=== PATIENT | female | born 1935 | race Caucasian/White ===

== ENCOUNTER 2017-03-23 13:00 | Inpatient (IN) | payer MEDICARE, OTHER ==
[~2017-03-23] VITALS: Ht 170.2 cm; Wt 91.2 kg
--- NOTE | 2017-03-23 13:51 | NUR ---
PATIENT IS AWAKE AND ALERT. SHE AMBULATED TO BATHROOM AND WAS ABLE TO PROVIDE A URINE SAMPLE.
[2017-03-23 13:56] LABS: BASOPHILS % (AUTO) 0.5 % (0.0-2.0); EOSINOPHILS # (AUTO) 0.1 K/uL (0.0-0.7); EOSINOPHILS % (AUTO) 1.1 % (0.0-7.0); HEMATOCRIT 36.7 % (37-47); HEMOGLOBIN 12.1 G/DL (12.0-16.0); LYMPHOCYTES # (AUTO) 2.6 K/UL (0.8-4.8); LYMPHOCYTES % (AUTO) 36.4 % (20.5-51.5); MEAN CORPUSCULAR HEMOGLOBIN 29.1 UUG (27.0-31.0); MEAN CORPUSCULAR HGB CONC 33 g/dL (32.0-37.0); MONOCYTES # (AUTO) 0.9 K/UL (0.1-1.30); MONOCYTES % (AUTO) 12.1 % (0.0-11.0); NEUTROPHILS # (AUTO) 3.5 K/UL (1.8-8.9); NEUTROPHILS % (AUTO) 49.9 % (38.5-71.5); PLATELET COUNT (AUTO) 285 K/UL (150-450); RED BLOOD CELL COUNT(AUTO) 4.17 MIL/UL (4.2-5.4); WHITE BLOOD COUNT (AUTO) 7.1 K/UL (4.0-11.2)
[2017-03-23] MEDS ORDERED: RIVA10TA PO (14:02)
[2017-03-23] MEDS ORDERED: HYDR25TA4 PO (14:02)
[2017-03-23] MEDS ORDERED: TRAZ-147 PO (14:02)
[2017-03-23] MEDS ORDERED: METF850T2 PO (14:02)
[2017-03-23] MEDS ORDERED: LIOT5TAB7 PO (14:02)
[2017-03-23] MEDS ORDERED: LISI40TA4 PO (14:02)
[2017-03-23] MEDS ORDERED: QUET200T PO (14:02)
[2017-03-23] MEDS ORDERED: DIVA500T2 PO (14:02)
[2017-03-23] MEDS ORDERED: QUET50TA PO (14:02)
[2017-03-23] MEDS ORDERED: FENO134C PO (14:02)
[2017-03-23] MEDS ORDERED: CHOL500062 PO (14:02)
[2017-03-23] MEDS ORDERED: DOCU-141 PO (14:02)
[2017-03-23] MEDS ORDERED: LINA5TAB PO (14:02)
[2017-03-23] MEDS ORDERED: MELA3TAB PO (14:02)
[2017-03-23] MEDS ORDERED: DIGO125T PO (14:02)
[2017-03-23] MEDS ORDERED: LEVO88TA5 PO (14:02)
[2017-03-23] MEDS ORDERED: CITA10TA17 PO (14:02)
[2017-03-23 14:06] LABS: *BILIRUBIN,URIN NEGATIVE (NEGATIVE); *BLOOD, URINE NEGATIVE (NEGATIVE); *COLOR,URINE YELLOW (YELLOW); *KETONES,URINE NEGATIVE (NEGATIVE); *PROTEIN,URINE NEGATIVE (NEGATIVE); *UROBILINOGEN,URINE 0.2 E.U./dl (NORMAL); CARBON DIOXIDE 31 mmol/L (21-32); CHLORIDE 100 mmol/L (98-107); CREATININE 1.2 mg/dL (0.6-1.3); GLUCOSE 126 mg/dL (74-106); LEUKOCYTE ESTERASE ,URINE NEGATIVE (NEGATIVE); NITRITE, URINE NEGATIVE (NEGATIVE); PH,URINE 7.5 (5.0-8.0); POTASSIUM 3.8 mmol/L (3.5-5.1); UGLUCOSE NEGATIVE (NEGATIVE); UREA NITROGEN, BLOOD 18 mg/dL (7-18)
[2017-03-23 14:07] LABS: *CLARITY,URINE SLIGHTLY HAZY (CLEAR)
[2017-03-23 14:12] LABS: ACETAMINOPHEN < 2.0 ug/mL (10-30); ALANINE AMINOTRANSFERASE 31 U/L (14-59); ALKALINE PHOSPHATASE 30 U/L (50-136); ASPARTATE AMINOTRANSFERASE 21 U/L (15-37); BILIRUBIN,DIRECT 0.1 mg/dL (0.0-0.2); BILIRUBIN,TOTAL 0.2 mg/dL (0.2-1.0); TOTAL PROTEIN, SERUM 7.1 g/dL (6.4-8.2)
[2017-03-23 14:13] LABS: ETHANOL < 3 MG/DL (0-0)
[2017-03-23 14:14] LABS: *AMPHETAMINE, URINE NEGATIVE (NEGATIVE); *BARBITURATE, URINE NEGATIVE (NEGATIVE); *CANNABINOID, URINE NEGATIVE (NEGATIVE); *COCCAINE, URINE NEGATIVE (NEGATIVE); *OPIATE, URINE NEGATIVE (NEGATIVE); *PHENCYCLIDINE SCREEN,URINE NEGATIVE (NEGATIVE)
[2017-03-23 14:50] LABS: BACTERIA,URINE NONE SEEN /HPF (NONE SEEN); RBC,URINE 0-3 /HPF (0-3); SQUAMOUS EPITHELIAL CELL,UR FEW /HPF (NONE SEEN); WBC,URINE 0-3 /HPF (0-3)
[2017-03-23] MEDS ORDERED: OLANZAPINE 10 MG VIAL IM ONE ×2 (14:53→15:09)
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
--- NOTE | 2017-03-23 16:02 | NUR ---
PATIENT STATES SHE IS HUNGRY. I BROUGHT HER A FOOD TRAY. SHE IS SITTING UP EATING.
--- NOTE | 2017-03-23 16:03 | NUR ---
SHARMIN ROSS ASSISTANT SPEECH LANGUAGE PATHOLOGIST CALLED FRO PSYCH EVAL.
--- NOTE | 2017-03-23 17:58 | NUR ---
AWAITING FOR SHARMIN SILVEIRA TO ARRIVE.
--- NOTE | 2017-03-23 18:34 | NUR ---
SHARMIN ROSS HERE TO EVALUATE PATIENT
--- NOTE | 2017-03-23 19:54 | NUR ---
GIVEN REPORT TO TONY AWARE OF PT'S CURRENT CONDITION. WILL CONTINUE FURTHER PLAN OF CARE.
[2017-03-23 20:00] VITALS: BP 131/95
[2017-03-23] MEDS ORDERED: MAGNESIUM HYDROXIDE 30 ML LIQUID UDC PO PRN (20:45)
[2017-03-23] MEDS ORDERED: MAG HYDROX/AL HYDROX/SIMETH 30 ML LIQUID UDC PO PRN (20:45)
[2017-03-23 20:47] VITALS: BP 131/95
--- NOTE | 2017-03-23 21:35 | NUR ---
received to care, from the emergency room, a resident of [facility], where she was reportedly exhibiting unpredictable and aggressive behavior, striking out at others, paranoid, delusional, not oriented to time and place. upon arrival on the unit, she was pleasant but confused. taerful at times. cooperative with admission interview, and currently eating a snack. no distress noted.
[2017-03-23] MEDS: ZOLPIDEM 5 MG TABLET PO PRN (23:57)
--- NOTE | 2017-03-23 23:57 | NUR ---
PRN ambien, given for insomnia.
--- NOTE | 2017-03-24 06:00 | NUR ---
slept 2.5 hours, total. assisted with am care, and shower. no distress noted.
[2017-03-24 07:30] VITALS: BP 130/90
[2017-03-24] MEDS: HYDROCHLOROTHIAZIDE 25 MG TABLET PO SCH (08:20)
[2017-03-24] MEDS: LISINOPRIL 20 MG TABLET PO SCH (08:21)
[2017-03-24] MEDS: METFORMIN HCL 850 MG TABLET PO SCH ×2 (08:21→18:03)
[2017-03-24] MEDS: DOCUSATE SODIUM 100 MG CAPSULE PO SCH (08:21)
[2017-03-24] MEDS: DIGOXIN 125 MCG TABLET PO SCH (08:21)
[2017-03-24] MEDS: LIOTHYRONINE SODIUM 5 MCG TABLET PO SCH (08:26)
[2017-03-24] MEDS: LINAGLIPTIN 5 MG TABLET PO SCH (08:26)
[2017-03-24] MEDS ORDERED: FENOFIBRATE MICRONIZED PO SCH (09:00)
[2017-03-24] MEDS: FENOFIBRATE NANOCRYSTALLIZED 145 MG TABLET PO SCH (09:04)
[2017-03-24] MEDS: LEVOTHYROXINE SODIUM 88 MCG TABLET PO SCH (09:07)
[2017-03-24] MEDS: LORAZEPAM 0.5 MG TABLET PO PRN (11:00)
[2017-03-24] MEDS ORDERED: LORAZEPAM 2 MG/1 ML VIAL IM ONE (13:45)
[2017-03-24] MEDS ORDERED: OLANZAPINE 10 MG VIAL IM ONE ×2 (13:45)
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
[2017-03-24 16:00] VITALS: BP 120/83
[2017-03-24] MEDS: DIVALPROEX 250 MG TABLET.DR PO SCH (17:52)
[2017-03-24] MEDS: QUETIAPINE FUMARATE 25 MG TABLET PO SCH ×2 (17:52→21:39)
[2017-03-24] MEDS: RIVAROXABAN 15 MG TABLET PO SCH (17:55)
[2017-03-24] MEDS ORDERED: RIVAROXABAN 10 MG TABLET PO SCH (18:00)
[2017-03-24] MEDS: ACETAMINOPHEN 325 MG TABLET PO PRN (19:51)
[2017-03-24 20:06] VITALS: BP 131/83
--- NOTE | 2017-03-24 22:00 | NUR ---
received to care, at change of shift, up in sarah chair, banging on table, stating "let me out". when asked if she wants to go to the bathroom, she said that she just wants "to get out of here, and see her father". reality orientation and emotional support were provided was compliant with bedtime medications, which were effective in calming her down. she then watched tv with peers for a while, and was assisted to bed. as of 2200, she appears to be asleep. no distress noted. will continue to monitor closely.
[2017-03-25] MEDS: LORAZEPAM 0.5 MG TABLET PO PRN ×2 (05:42→13:03)
--- NOTE | 2017-03-25 05:42 | NUR ---
pt is now awake. assisted to the bathroom, and up in the sarah chair. PRN ativan given for anxiety.
--- NOTE | 2017-03-25 06:00 | NUR ---
slept 7.0 hours, total.
[2017-03-25] MEDS: LEVOTHYROXINE SODIUM 88 MCG TABLET PO SCH (06:17)
[2017-03-25] MEDS: LIOTHYRONINE SODIUM 5 MCG TABLET PO SCH (06:17)
--- NOTE | 2017-03-25 06:20 | NUR ---
appears calmer, now.
[2017-03-25 07:30] VITALS: BP 116/80
[2017-03-25] MEDS: DIVALPROEX 250 MG TABLET.DR PO SCH ×3 (08:18→16:59)
[2017-03-25] MEDS: FENOFIBRATE NANOCRYSTALLIZED 145 MG TABLET PO SCH (08:18)
[2017-03-25] MEDS: METFORMIN HCL 850 MG TABLET PO SCH ×2 (08:18→17:13)
[2017-03-25] MEDS: CHOLECALCIFEROL 1,000 UNIT TABLET PO SCH (08:19)
[2017-03-25] MEDS: HYDROCHLOROTHIAZIDE 25 MG TABLET PO SCH (08:19)
[2017-03-25] MEDS: DIGOXIN 125 MCG TABLET PO SCH (08:20)
[2017-03-25] MEDS: DOCUSATE SODIUM 100 MG CAPSULE PO SCH (08:20)
[2017-03-25] MEDS: LISINOPRIL 20 MG TABLET PO SCH (08:21)
[2017-03-25] MEDS: LINAGLIPTIN 5 MG TABLET PO SCH (08:21)
[2017-03-25] MEDS: QUETIAPINE FUMARATE 25 MG TABLET PO SCH ×4 (08:21→20:37)
[2017-03-25] MEDS: OMEGA-3 FATTY ACIDS/FISH OIL CAPSULE PO SCH (08:21)
[2017-03-25 15:52] VITALS: BP 91/57
[2017-03-25] MEDS: RIVAROXABAN 15 MG TABLET PO SCH (17:14)
--- NOTE | 2017-03-25 17:30 | NUR ---
Gps/Nude Model- Episodes of crying spells, pushings tray , was anxious, restless, mood swings noted. Redirectable , feeding self ind. after set up.Kept up on her sarah-chair w/ lower extremities elevated, trace edema lower ext. noted, b/p 91/57, no distress.Reassess blood pressure.
[2017-03-25] MEDS: ACETAMINOPHEN 325 MG TABLET PO PRN (20:38)
[2017-03-25 21:06] VITALS: BP 116/69
--- NOTE | 2017-03-25 22:00 | NUR ---
received to care, up in sarah chair, appearing anxious, but directable. b/p was 116/69, so her bedtime dose of seroquel was given. as of 2199, she appears asleep, and calm, in her bed. no distress noted. will continue to monitor closely.
[2017-03-25] MEDS: ZOLPIDEM 5 MG TABLET PO PRN (23:21)
--- NOTE | 2017-03-25 23:21 | NUR ---
pt is awake, and restless. attempting to climb out of bed. offered the bathroom, but she declined. stated she wanted to get dressed. PRN harlan was given at this time. pt is currently lying in bed, calm, with her eyes closed. will continue to monitor closely.
--- NOTE | 2017-03-25 23:45 | NUR ---
appears to be asleep. no distress noted.
[2017-03-26] MEDS: LIOTHYRONINE SODIUM 5 MCG TABLET PO SCH (06:01)
[2017-03-26] MEDS: LEVOTHYROXINE SODIUM 88 MCG TABLET PO SCH (06:01)
[2017-03-26] MEDS: LORAZEPAM 0.5 MG TABLET PO PRN ×2 (06:03→12:02)
--- NOTE | 2017-03-26 06:03 | NUR ---
pt is now in bed awake, and agitated, appearing tearful, and restless. PRN ativan was given at this time. will continue to monitor closely.
--- NOTE | 2017-03-26 06:45 | NUR ---
ppears calmer, now. slept hours, total. assisted with am care, and shower. no distress noted.
[2017-03-26 07:30] VITALS: BP 112/72
[2017-03-26] MEDS: DIGOXIN 125 MCG TABLET PO SCH (08:41)
[2017-03-26] MEDS: METFORMIN HCL 850 MG TABLET PO SCH ×2 (08:41→17:17)
[2017-03-26] MEDS: HYDROCHLOROTHIAZIDE 25 MG TABLET PO SCH (08:41)
[2017-03-26] MEDS: QUETIAPINE FUMARATE 25 MG TABLET PO SCH (08:42)
[2017-03-26] MEDS: CHOLECALCIFEROL 1,000 UNIT TABLET PO SCH (08:42)
[2017-03-26] MEDS: OMEGA-3 FATTY ACIDS/FISH OIL CAPSULE PO SCH (08:42)
[2017-03-26] MEDS: DOCUSATE SODIUM 100 MG CAPSULE PO SCH (08:42)
[2017-03-26] MEDS: DIVALPROEX 250 MG TABLET.DR PO SCH ×3 (08:42→16:20)
[2017-03-26] MEDS: LISINOPRIL 20 MG TABLET PO SCH (08:43)
[2017-03-26] MEDS: FENOFIBRATE NANOCRYSTALLIZED 145 MG TABLET PO SCH (08:44)
[2017-03-26] MEDS: LINAGLIPTIN 5 MG TABLET PO SCH (08:48)
[2017-03-26] MEDS: QUETIAPINE FUMARATE 100 MG TABLET PO SCH ×2 (12:15→16:20)
--- NOTE | 2017-03-26 12:36 | NUR ---
Initial DC Plan: Patient currently resides at [facility] [[address], [place], [place] [address]; ]. NADEEM spoke with Baylee at [facility] who stated patient cannot return to the facility. NADEEM will follow up with MD, patient, and patient's daughter Zakiya [[phone]] to discuss most appropriate discharge plans. SW will form a safe and proper discharge.
[2017-03-26] MEDS ORDERED: QUETIAPINE FUMARATE 25 MG TABLET PO SCH (13:00)
[2017-03-26 15:00] VITALS: BP 90/56
[2017-03-26] MEDS: RIVAROXABAN 15 MG TABLET PO SCH (17:18)
[2017-03-26 20:19] VITALS: BP 90/52
[2017-03-26 20:33] VITALS: BP 90/52
[2017-03-26] MEDS: ACETAMINOPHEN 325 MG TABLET PO PRN (23:21)
--- NOTE | 2017-03-26 23:26 | NUR ---
GPS: PATIENT C/O GEN: PAIN. TYLENOL 650 MG PO GIVEN.
--- NOTE | 2017-03-27 00:26 | NUR ---
GPS: PATIENT STATED I AM FEELING BETTER NOW. PRN FOR PAIN EFFECTIVE.
[2017-03-27] MEDS: LIOTHYRONINE SODIUM 5 MCG TABLET PO SCH (06:10)
[2017-03-27] MEDS: LEVOTHYROXINE SODIUM 88 MCG TABLET PO SCH (06:10)
--- NOTE | 2017-03-27 06:19 | NUR ---
GPS: Remain calm and cooperative with meds and care. pt is now awake sitting up in sarah chair near nursing station, and appearing tearful, and restless. PRN ativan was given at this time. will continue to monitor closely.
[2017-03-27] MEDS: LORAZEPAM 0.5 MG TABLET PO PRN (06:24)
--- NOTE | 2017-03-27 06:25 | NUR ---
gps: patient took ativan 0.5 mg po for restlessness. slept 3 hrs through the night. continue monitoring for crying spill and restlessness.
[2017-03-27 07:30] VITALS: BP 145/52
--- NOTE | 2017-03-27 07:30 | NUR ---
GPS: Nursing Notes: Severe Agitation: Patient constantly shouting, overly disruptive by shouting profanities toward staff, crying and screaming at staff, spitting at staff, stating, "I am going to get on the street in the real world....", restless, setting limits, but unable to be redirected, poor anger management, loud and angry affect, Dr. Clark bustillos, continue with treatment plan.
[2017-03-27] MEDS ORDERED: OLANZAPINE 10 MG VIAL IM ONE (07:45)
--- NOTE | 2017-03-27 07:51 | NUR ---
GPS: Nursing Notes: Chemical Restraint: Patient continue with severe agitation, violent outburst without provocation, trying to spit to staff, verbal abusive, using profanities toward staff, threatening staff, Dr. Rodas called back and ordered: Zyprexa 10mg IM X1 STAT, V/S: 145/52, 114, 18,97.4, 96%, 0/10, continue to monitor patient for safety, continue with treatment plan.
--- NOTE | 2017-03-27 08:21 | NUR ---
GPS: Nursing Notes: Reassessment of Chemical Restraint: Patient continue to be angry, verbal abusive, but less disruptive, following staff directions, medication Zyprexa IM STAT was effective, refusing V/S at this time, continue to monitor patient for safety, continue with treatment plan.
[2017-03-27] MEDS: LINAGLIPTIN 5 MG TABLET PO SCH (09:24)
[2017-03-27] MEDS: DIGOXIN 125 MCG TABLET PO SCH (09:24)
[2017-03-27] MEDS: FENOFIBRATE NANOCRYSTALLIZED 145 MG TABLET PO SCH (09:25)
[2017-03-27] MEDS: HYDROCHLOROTHIAZIDE 25 MG TABLET PO SCH (09:25)
[2017-03-27] MEDS: DIVALPROEX 250 MG TABLET.DR PO SCH ×3 (09:25→16:51)
[2017-03-27] MEDS: OMEGA-3 FATTY ACIDS/FISH OIL CAPSULE PO SCH (09:25)
[2017-03-27] MEDS: QUETIAPINE FUMARATE 100 MG TABLET PO SCH ×3 (09:25→16:51)
[2017-03-27] MEDS: METFORMIN HCL 850 MG TABLET PO SCH ×2 (09:26→17:22)
[2017-03-27] MEDS: DOCUSATE SODIUM 100 MG CAPSULE PO SCH (09:26)
[2017-03-27] MEDS: LISINOPRIL 20 MG TABLET PO SCH (09:26)
[2017-03-27] MEDS: CHOLECALCIFEROL 1,000 UNIT TABLET PO SCH (09:26)
[2017-03-27] MEDS: ACETAMINOPHEN 325 MG TABLET PO PRN (12:11)
[2017-03-27 15:00] VITALS: BP 92/55
[2017-03-27] MEDS: RIVAROXABAN 15 MG TABLET PO SCH (17:23)
[2017-03-27 20:02] VITALS: BP 109/63
[2017-03-28] MEDS: LIOTHYRONINE SODIUM 5 MCG TABLET PO SCH (06:09)
[2017-03-28] MEDS: LEVOTHYROXINE SODIUM 88 MCG TABLET PO SCH (06:09)
--- NOTE | 2017-03-28 06:24 | NUR ---
GPS: GPS: Remain calm and cooperative with meds and care. showered this morning. slept 8 hrs through the night. no agitation or crying spill noted through the night. will continue to monitor closely.
[2017-03-28 07:30] VITALS: BP 135/79
[2017-03-28] MEDS: LORAZEPAM 0.5 MG TABLET PO PRN ×2 (07:30→17:59)
[2017-03-28] MEDS: ACETAMINOPHEN 325 MG TABLET PO PRN ×2 (07:31→17:59)
[2017-03-28] MEDS: DOCUSATE SODIUM 100 MG CAPSULE PO SCH (08:15)
[2017-03-28] MEDS: DIVALPROEX 250 MG TABLET.DR PO SCH ×4 (08:15→20:33)
[2017-03-28] MEDS: CHOLECALCIFEROL 1,000 UNIT TABLET PO SCH (08:15)
[2017-03-28] MEDS: METFORMIN HCL 850 MG TABLET PO SCH ×2 (08:16→17:05)
[2017-03-28] MEDS: OMEGA-3 FATTY ACIDS/FISH OIL CAPSULE PO SCH (08:16)
[2017-03-28] MEDS: QUETIAPINE FUMARATE 100 MG TABLET PO SCH ×3 (08:16→16:50)
[2017-03-28] MEDS: FENOFIBRATE NANOCRYSTALLIZED 145 MG TABLET PO SCH (08:16)
[2017-03-28] MEDS: DIGOXIN 125 MCG TABLET PO SCH (08:16)
[2017-03-28] MEDS: LISINOPRIL 20 MG TABLET PO SCH (08:17)
[2017-03-28] MEDS: HYDROCHLOROTHIAZIDE 25 MG TABLET PO SCH (08:17)
[2017-03-28] MEDS: LINAGLIPTIN 5 MG TABLET PO SCH (08:30)
[2017-03-28 16:32] VITALS: BP 92/62
[2017-03-28] MEDS ORDERED: DIVALPROEX 250 MG TABLET.DR PO SCH (17:00)
[2017-03-28] MEDS: RIVAROXABAN 15 MG TABLET PO SCH (17:08)
[2017-03-28 20:00] VITALS: BP 113/64
[2017-03-28] MEDS: ZOLPIDEM 5 MG TABLET PO PRN (22:05)
[2017-03-29] MEDS: LORAZEPAM 0.5 MG TABLET PO PRN ×2 (02:16→12:51)
[2017-03-29] MEDS: LEVOTHYROXINE SODIUM 88 MCG TABLET PO SCH (06:25)
[2017-03-29] MEDS: LIOTHYRONINE SODIUM 5 MCG TABLET PO SCH (06:25)
[2017-03-29 07:30] VITALS: BP 138/69
[2017-03-29] MEDS: FENOFIBRATE NANOCRYSTALLIZED 145 MG TABLET PO SCH (08:41)
[2017-03-29] MEDS: METFORMIN HCL 850 MG TABLET PO SCH ×2 (08:42→17:47)
[2017-03-29] MEDS: QUETIAPINE FUMARATE 100 MG TABLET PO SCH ×4 (08:42→20:26)
[2017-03-29] MEDS: DOCUSATE SODIUM 100 MG CAPSULE PO SCH (08:42)
[2017-03-29] MEDS: OMEGA-3 FATTY ACIDS/FISH OIL CAPSULE PO SCH (08:42)
[2017-03-29] MEDS: LINAGLIPTIN 5 MG TABLET PO SCH (08:42)
[2017-03-29] MEDS: DIVALPROEX 250 MG TABLET.DR PO SCH ×4 (08:42→20:26)
[2017-03-29] MEDS: CHOLECALCIFEROL 1,000 UNIT TABLET PO SCH (08:42)
[2017-03-29] MEDS: LISINOPRIL 20 MG TABLET PO SCH (08:43)
[2017-03-29] MEDS: DIGOXIN 125 MCG TABLET PO SCH (08:43)
[2017-03-29] MEDS: HYDROCHLOROTHIAZIDE 25 MG TABLET PO SCH (08:43)
[2017-03-29] MEDS: LIDOCAINE 5% PATCH TD SCH (08:44)
--- NOTE | 2017-03-29 11:38 | NUR ---
Firearms Reporting: NADEEM submitted Mental Health Report to [facility] on 03/29.
[2017-03-29] MEDS: ACETAMINOPHEN 325 MG TABLET PO PRN (12:51)
[2017-03-29 13:00] VITALS: BP 125/64
[2017-03-29 16:45] VITALS: BP 125/64
[2017-03-29] MEDS: RIVAROXABAN 15 MG TABLET PO SCH (17:48)
--- NOTE | 2017-03-29 18:26 | NUR ---
GPS: Nursing Notes: Thought Disorder: Patient is awake and responding to her name, disoriented, confused, poor impulse control, loud and anxious affect, sundown behavior, episodes of banging on the exit doors, stating, "I need to go home... I need to see my mother...", episodes of crying spells, "I need to take care of my father...", violent outburst without provocation toward staff, poor anger management, unable to formulate a plan for self care, continue with treatment plan.
[2017-03-29 19:45] VITALS: BP 116/72
[2017-03-30] MEDS: LIOTHYRONINE SODIUM 5 MCG TABLET PO SCH (06:13)
[2017-03-30] MEDS: LEVOTHYROXINE SODIUM 88 MCG TABLET PO SCH (06:13)
[2017-03-30 07:30] VITALS: BP 132/76
[2017-03-30] MEDS: ACETAMINOPHEN 325 MG TABLET PO PRN ×2 (07:48→14:10)
[2017-03-30] MEDS: LORAZEPAM 0.5 MG TABLET PO PRN ×2 (07:48→14:10)
[2017-03-30] MEDS: FENOFIBRATE NANOCRYSTALLIZED 145 MG TABLET PO SCH (08:31)
[2017-03-30] MEDS: OMEGA-3 FATTY ACIDS/FISH OIL CAPSULE PO SCH (08:31)
[2017-03-30] MEDS: METFORMIN HCL 850 MG TABLET PO SCH ×2 (08:32→17:34)
[2017-03-30] MEDS: LINAGLIPTIN 5 MG TABLET PO SCH (08:32)
[2017-03-30] MEDS: CHOLECALCIFEROL 1,000 UNIT TABLET PO SCH (08:32)
[2017-03-30] MEDS: QUETIAPINE FUMARATE 100 MG TABLET PO SCH ×4 (08:32→20:27)
[2017-03-30] MEDS: DIVALPROEX 250 MG TABLET.DR PO SCH ×4 (08:32→20:27)
[2017-03-30] MEDS: DOCUSATE SODIUM 100 MG CAPSULE PO SCH (08:32)
[2017-03-30] MEDS: LISINOPRIL 20 MG TABLET PO SCH (08:33)
[2017-03-30] MEDS: HYDROCHLOROTHIAZIDE 25 MG TABLET PO SCH (08:33)
[2017-03-30] MEDS: DIGOXIN 125 MCG TABLET PO SCH (08:33)
[2017-03-30] MEDS: LIDOCAINE 5% PATCH TD SCH (08:34)
[2017-03-30 16:56] VITALS: BP 123/71
[2017-03-30] MEDS: RIVAROXABAN 15 MG TABLET PO SCH (17:34)
[2017-03-30 19:59] VITALS: BP 111/61
[2017-03-30] MEDS: ATORVASTATIN 40 MG TABLET PO SCH (20:27)
[2017-03-31] MEDS: LEVOTHYROXINE SODIUM 88 MCG TABLET PO SCH (06:46)
[2017-03-31] MEDS: LIOTHYRONINE SODIUM 5 MCG TABLET PO SCH (06:46)
--- NOTE | 2017-03-31 06:55 | NUR ---
PATIENT SLEPT FOR APPROX 7.30 HRS THROUGH THE NIGHT. NO EPISODES OF CRYING AND SCREAMING WERE NOTED DURING THE SHIFT. HOWEVER, PATIENT NOTED WITH DEPRESSED MOOD. WILL CONTINUE TO MONITOR.
[2017-03-31 08:00] VITALS: BP 138/94
[2017-03-31] MEDS: DIVALPROEX 250 MG TABLET.DR PO SCH ×4 (08:39→20:19)
[2017-03-31] MEDS: METFORMIN HCL 850 MG TABLET PO SCH ×2 (08:39→17:42)
[2017-03-31] MEDS: DOCUSATE SODIUM 100 MG CAPSULE PO SCH (08:40)
[2017-03-31] MEDS: FENOFIBRATE NANOCRYSTALLIZED 145 MG TABLET PO SCH (08:40)
[2017-03-31] MEDS: OMEGA-3 FATTY ACIDS/FISH OIL CAPSULE PO SCH (08:40)
[2017-03-31] MEDS: DIGOXIN 125 MCG TABLET PO SCH (08:44)
[2017-03-31] MEDS: CHOLECALCIFEROL 1,000 UNIT TABLET PO SCH (08:45)
[2017-03-31] MEDS: LISINOPRIL 20 MG TABLET PO SCH (08:45)
[2017-03-31] MEDS: LINAGLIPTIN 5 MG TABLET PO SCH (08:46)
[2017-03-31] MEDS: QUETIAPINE FUMARATE 100 MG TABLET PO SCH ×4 (08:46→20:19)
[2017-03-31] MEDS: LIDOCAINE 5% PATCH TD SCH (08:48)
[2017-03-31] MEDS: HYDROCHLOROTHIAZIDE 25 MG TABLET PO SCH (08:53)
[2017-03-31] MEDS: ACETAMINOPHEN 325 MG TABLET PO PRN ×2 (10:49→20:25)
[2017-03-31] MEDS: LORAZEPAM 0.5 MG TABLET PO PRN (12:02)
[2017-03-31 16:01] VITALS: BP 107/63
[2017-03-31] MEDS: RIVAROXABAN 15 MG TABLET PO SCH (17:34)
[2017-03-31] MEDS: ATORVASTATIN 40 MG TABLET PO SCH (20:19)
[2017-03-31 21:22] VITALS: BP 112/62
--- NOTE | 2017-03-31 21:22 | NUR ---
RECEIVED PATIENT SITTING IN THE HALLWAY. SHE WAS NOTED A/O X1. IN NO ACUTE DISTRESS. MEDICATION COMPLIANT AT THIS TIME. PATIENT C/O MILD PAIN IN BOTH LEGS. TYLENOL 650 MG PO PRN WAS GIVEN AT 2030. PATIENT NOTED WITH DEPRESSED MOD, LABILE, TWO CRYING EPISODES. PATIENT IS REDIRECTABLE AT THIS TIME. WILL CONTINUE TO MONITOR.
[2017-04-01] MEDS: ACETAMINOPHEN 325 MG TABLET PO PRN (05:15)
[2017-04-01] MEDS: LIOTHYRONINE SODIUM 5 MCG TABLET PO SCH (06:31)
[2017-04-01] MEDS: LEVOTHYROXINE SODIUM 88 MCG TABLET PO SCH (06:31)
--- NOTE | 2017-04-01 06:53 | NUR ---
PATIENT SLEPT FOR APPROX 7.0 HRS THROUGH THE NIGHT. SHE REQUESTED PAIN MEDICATION FOR KNEE PAIN. TYLENOL 7650MG PO PRN WAS GIVEN AT APPROX 0530. NO CRYING EPISODES NOTED THIS MORNING. PATIENT COMPLIANT WITH MEDICATION REGIMENT AT THIS TIME.
[2017-04-01 07:30] VITALS: BP 132/81
[2017-04-01] MEDS: CHOLECALCIFEROL 1,000 UNIT TABLET PO SCH (08:17)
[2017-04-01] MEDS: METFORMIN HCL 850 MG TABLET PO SCH ×2 (08:17→17:08)
[2017-04-01] MEDS: LISINOPRIL 20 MG TABLET PO SCH (08:17)
[2017-04-01] MEDS: DOCUSATE SODIUM 100 MG CAPSULE PO SCH (08:17)
[2017-04-01] MEDS: OMEGA-3 FATTY ACIDS/FISH OIL CAPSULE PO SCH (08:17)
[2017-04-01] MEDS: DIVALPROEX 250 MG TABLET.DR PO SCH ×4 (08:18→20:28)
[2017-04-01] MEDS: DIGOXIN 125 MCG TABLET PO SCH (08:18)
[2017-04-01] MEDS: QUETIAPINE FUMARATE 100 MG TABLET PO SCH ×4 (08:18→20:28)
[2017-04-01] MEDS: FENOFIBRATE NANOCRYSTALLIZED 145 MG TABLET PO SCH (08:18)
[2017-04-01] MEDS: LIDOCAINE 5% PATCH TD SCH (08:21)
[2017-04-01] MEDS: HYDROCHLOROTHIAZIDE 25 MG TABLET PO SCH (08:21)
[2017-04-01] MEDS: LINAGLIPTIN 5 MG TABLET PO SCH (08:22)
[2017-04-01] MEDS: LORAZEPAM 0.5 MG TABLET PO PRN ×2 (11:59→17:31)
[2017-04-01 15:16] VITALS: BP 104/51
[2017-04-01] MEDS: RIVAROXABAN 15 MG TABLET PO SCH (17:09)
--- NOTE | 2017-04-01 17:28 | NUR ---
Gps/Particleboard Factory Worker- Anxious, crying out loud, unable to console patient, kept crying calling for her mother. Lower ext. elevated , trace edema noted, c/o pain on her knees and sole of he left foot, claimed she has some pain during ambulation to bathroom, continent, wears diaper, has urgency.
--- NOTE | 2017-04-01 20:00 | NUR ---
PT RECEIVED IN THE HALLWAY SITTING UP IN THE CHAIR, CONFUSED, PERIODICALLY CRYING, FOR NO REASON. WILL CONTINUE TO MONITOR CLOSELY.
[2017-04-01] MEDS: ATORVASTATIN 40 MG TABLET PO SCH (20:28)
[2017-04-01 21:28] VITALS: BP 109/60
[2017-04-02] MEDS: LIOTHYRONINE SODIUM 5 MCG TABLET PO SCH (06:17)
[2017-04-02] MEDS: LEVOTHYROXINE SODIUM 88 MCG TABLET PO SCH (06:17)
[2017-04-02 07:30] VITALS: BP 132/73
[2017-04-02] MEDS: OMEGA-3 FATTY ACIDS/FISH OIL CAPSULE PO SCH (08:10)
[2017-04-02] MEDS: QUETIAPINE FUMARATE 100 MG TABLET PO SCH ×3 (08:10→16:27)
[2017-04-02] MEDS: FENOFIBRATE NANOCRYSTALLIZED 145 MG TABLET PO SCH (08:12)
[2017-04-02] MEDS: LINAGLIPTIN 5 MG TABLET PO SCH (08:12)
[2017-04-02] MEDS: DIVALPROEX 250 MG TABLET.DR PO SCH ×3 (08:12→16:28)
[2017-04-02] MEDS: METFORMIN HCL 850 MG TABLET PO SCH ×2 (08:12→17:02)
[2017-04-02] MEDS: CHOLECALCIFEROL 1,000 UNIT TABLET PO SCH (08:12)
[2017-04-02] MEDS: DIGOXIN 125 MCG TABLET PO SCH (08:13)
[2017-04-02] MEDS: HYDROCHLOROTHIAZIDE 25 MG TABLET PO SCH (08:14)
[2017-04-02] MEDS: LIDOCAINE 5% PATCH TD SCH (08:16)
[2017-04-02] MEDS: LISINOPRIL 20 MG TABLET PO SCH (08:16)
[2017-04-02] MEDS: DOCUSATE SODIUM 100 MG CAPSULE PO SCH (08:18)
--- NOTE | 2017-04-02 10:30 | NUR ---
DC Note: Patient will be discharged to [facility] [[address], [place] [address]; ] via private transportation at 3pm. NADEEM spoke with Enedelia at [facility] who confirmed they will be providing transportation for the patient. Patient's daughter/DPRAMONA Christianson [[phone]] is aware and agreeable to discharge plans. Patient will follow up with Dr. Clayton (Office Services Specialist) and Dr. Grigsby (Psychiatrist).
--- NOTE | 2017-04-02 13:31 | NUR ---
Gps/Hedge Fund Trader- Called [facility], report given to Nurse Mcmahon , with estimated orange picker machine operator time of 3 pm.Patient was well informed.
--- NOTE | 2017-04-02 14:00 | NUR ---
Gps/Ultrasonic Cleaner- heard loud noise in the tv room , found patient lying on her back, supporting her right arm, stating " my arm hurts". Security staff came to assist in getting patient back to her sarah-chair.Blood pressure check 131/60 HR 115, 02 sat 96%. Ice pack applied to right elbow, tylenol 650 mg. po given , right arm elevated on pillow. Dr Rodas as well Dr Mcdermott was called and informed by Dry Chain Operator Jade of the incident, order received to do x-ray., was done portable, awaiting for result.
[2017-04-02] MEDS: ACETAMINOPHEN 325 MG TABLET PO PRN (14:16)
[2017-04-02] MEDS: LORAZEPAM 0.5 MG TABLET PO PRN (14:17)
--- NOTE | 2017-04-02 14:57 | NUR ---
Gps/Hands Parter- Patient remains on her sarah-chair infront of the Nurses station asleep , with right arm elevated on pillow.
[2017-04-02 15:00] VITALS: BP 112/50
--- NOTE | 2017-04-02 17:03 | NUR ---
Gps/Principal Gifts Officer- Facility [facility] here to tile picker patient. All belongings given back to patient. Discharged in good spirit, denies any pain.
[2017-04-02] MEDS: RIVAROXABAN 15 MG TABLET PO SCH (17:10)
== END 2017-04-02 17:15 | DRG 885 ==
LOC: ER 13:00 → GPS 19:59
PROVIDERS: ADMIT Psychiatry & Neurology Psychiatry; ATTEND Internal Medicine
DX: F31.5 Bipolar disorder, current episode depressed, severe, with psychotic features (principal); D68.59 Other primary thrombophilia; I48.91 Unspecified atrial fibrillation; E11.9 Type 2 diabetes mellitus without complications; E03.9 Hypothyroidism, unspecified; Z79.01 Long term (current) use of anticoagulants; Z79.899 Other long term (current) drug therapy; Z79.84 Long term (current) use of oral hypoglycemic drugs; F41.9 Anxiety disorder, unspecified; F03.90 Unspecified dementia, unspecified severity, without behavioral disturbance, psychotic disturbance, mood disturbance, and anxiety; M94.20 Chondromalacia, unspecified site; I10 Essential (primary) hypertension; Z86.73 Personal history of transient ischemic attack (TIA), and cerebral infarction without residual deficits; E78.5 Hyperlipidemia, unspecified; Z86.59 Personal history of other mental and behavioral disorders
CPT/HCPCS: 36415; 70030-TC; 73070; 73565; 80164; 80307; 85025; 93005; 97110; 97116; 97530; A4663; G0480; G0480-TC; J2060; J2358; J3490

== ENCOUNTER 2017-04-29 16:27 | Inpatient (IN) | payer MEDICARE, OTHER ==
[~2017-04-29] VITALS: Ht 170.2 cm; Wt 88.0 kg
[~2017-04-29 16:27] MED LIST: CHOL500062 PO; DIGO125T PO; DOCU-141 PO; FENO134C PO; HYDR25TA4 PO; LEVO88TA5 PO; LINA5TAB PO; LIOT5TAB7 PO; LISI40TA4 PO; METF850T2 PO; RIVA10TA PO
[2017-04-29] MEDS ORDERED: LORAZEPAM 0.5 MG TABLET PO ONE (17:00)
[2017-04-29 17:34] LABS: BASOPHILS # (AUTO) 0.1 K/uL (0.0-8.0); BASOPHILS % (AUTO) 0.9 % (0.0-2.0); EOSINOPHILS # (AUTO) 0.1 K/uL (0.0-0.7); EOSINOPHILS % (AUTO) 0.8 % (0.0-7.0); HEMATOCRIT 33.8 % (31.2-41.9); HEMOGLOBIN 11.4 g/dL (10.9-14.3); LYMPHOCYTES # (AUTO) 3.5 K/uL (20.0-40.0); LYMPHOCYTES % (AUTO) 38.2 % (20.5-51.5); MEAN CORPUSCULAR HEMOGLOBIN 31.1 uug (24.7-32.8); MEAN CORPUSCULAR HGB CONC 34 g/dL (32.3-35.6); MEAN CORPUSCULAR VOLUME 92.4 fL (75.5-95.3); NEUTROPHILS # (AUTO) 4.5 K/uL (1.8-8.9); NEUTROPHILS % (AUTO) 49.1 % (38.5-71.5); PLATELET COUNT (AUTO) 265 K/uL (179-408); RED BLOOD CELL COUNT(AUTO) 3.66 MIL/uL (3.63-4.92); WHITE BLOOD COUNT (AUTO) 9.1 K/uL (3.8-11.8)
[2017-04-29 17:41] LABS: CARBON DIOXIDE 29 mmol/L (21-32); CHLORIDE 100 mmol/L (98-107); CREATININE 1.6 mg/dL (0.6-1.3); GLUCOSE 141 mg/dL (74-106); UREA NITROGEN, BLOOD 24 mg/dL (7-18)
[2017-04-29 17:47] LABS: ALANINE AMINOTRANSFERASE 32 U/L (14-59); ALKALINE PHOSPHATASE 33 U/L (50-136); ASPARTATE AMINOTRANSFERASE 24 U/L (15-37); BILIRUBIN,DIRECT 0.1 mg/dL (0.0-0.2); BILIRUBIN,TOTAL 0.3 mg/dL (0.2-1.0); TOTAL PROTEIN, SERUM 7.4 g/dL (6.4-8.2)
[2017-04-29 17:49] LABS: ETHANOL < 3 MG/DL (0-0)
[2017-04-29 18:11] LABS: ACETAMINOPHEN < 2.0 ug/mL (10-30)
[2017-04-29] MEDS ORDERED: LORAZEPAM 0.5 MG TABLET ONE (18:18)
[2017-04-29] MEDS ORDERED: dulcolax PR (18:24)
[2017-04-29] MEDS ORDERED: DIVA250T4 PO (18:24)
[2017-04-29] MEDS ORDERED: ATOR40TA PO (18:24)
[2017-04-29] MEDS ORDERED: FENO145T PO (18:24)
[2017-04-29] MEDS ORDERED: OMEG1CAP PO (18:24)
[2017-04-29] MEDS ORDERED: LIDO30AD10 TD (18:24)
[2017-04-29] MEDS ORDERED: ACET-2154 PO (18:24)
[2017-04-29] MEDS ORDERED: MAGN400O6 PO (18:24)
[2017-04-29] MEDS ORDERED: MAG355OR18 PO (18:24)
[2017-04-29 20:30] VITALS: BP 140/80
[2017-04-29] MEDS ORDERED: MAG HYDROX/AL HYDROX/SIMETH 30 ML LIQUID UDC PO PRN (20:30)
[2017-04-29] MEDS ORDERED: MAGNESIUM HYDROXIDE 30 ML LIQUID UDC PO PRN (20:30)
--- NOTE | 2017-04-29 20:30 | NUR ---
GPS: 82 YEAR OLD FEMALE ADMITTED FROM ER FOR DX: OF GD UNDER Sheldon BARBOSA PLACED ON 72 HRS HOLD FOR INCREASED AGITATION AND REFUSING CARE. A/O X1 TO NAME ONLY,CONFUSED AND DISORIENTED TO TIME AND PLACE. AMBULATE WITH ASSIST. INCONTINENT OF B+B. NO AGITATION NOTED AT THIS TIME CALM AND COOPERATIVE. PATIENT REFUSED TO REMOVE HER WHITE COLOR RING AND BRACELET. PATIENT STATED I LIKE TO KEEP WITH ME. DAUGHTER EDA GERMAIN AWARE PATIENT IS IN MHU.CONTINUE MONITORING FOR SAFETY.
--- NOTE | 2017-04-29 20:40 | NUR ---
Pt. admitted to GPS, under care of Dr. Rodas Belongs List completed
[2017-04-29 21:02] VITALS: BP 156/54
[2017-04-30] MEDS: LORAZEPAM 0.5 MG TABLET PO PRN ×3 (03:02→14:12)
--- NOTE | 2017-04-30 03:03 | NUR ---
GPS: PATIENT IS AGITATED. BANGING ON THE TABLE. ATIVAN 0.5MG PO GIVEN.
--- NOTE | 2017-04-30 04:03 | NUR ---
GPS: PATIENT IS CALM NOW. NO MORE AGITATION NOTED. PRN FOR AGITATION EFFECTIVE.
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
[2017-04-30 07:30] VITALS: BP 107/84
[2017-04-30 08:26] LABS: CHOLESTEROL 179 mg/dL (<200); TRIGLYCERIDES 465 MG/DL (30-150)
[2017-04-30 08:35] LABS: HDL CHOLESTEROL < 10 mg/dL (40-60)
[2017-04-30] MEDS: DIVALPROEX SPRINKLE 125 MG CAP.SPRINK PO SCH ×2 (13:16→17:52)
[2017-04-30] MEDS: ACETAMINOPHEN 325 MG TABLET PO PRN (14:18)
[2017-04-30] MEDS ORDERED: ACETAMINOPHEN 325 MG TABLET PO PRN (15:15)
[2017-04-30] MEDS ORDERED: DEXTROSE 50% 50 ML DISP.SYRIN IV PRN (15:15)
[2017-04-30] MEDS ORDERED: MAGNESIUM HYDROXIDE 30 ML LIQUID UDC PO PRN (15:15)
[2017-04-30] MEDS ORDERED: MAG HYDROX/AL HYDROX/SIMETH 30 ML LIQUID UDC PO PRN (15:15)
[2017-04-30 15:17] VITALS: BP 125/77
--- NOTE | 2017-04-30 16:20 | NUR ---
Initial Discharge Note:Patient currently resides at [facility][[address], [place] [address]; ]. NADEEM spoke to Jeny at [facility] who stated that the patient will be able to come back to the facility. Jeny gave Michelle's number from addmission([phone]) and said that she would let her know to put back a hold on the pt's bed. NADEEM will follow up with MD, patient, and patient's daughter Zakiya [[phone]]. SW will form a safe and proper discharge.
--- NOTE | 2017-04-30 16:21 | NUR ---
Important Note: Pt's daughter Zakiya ([phone]) reported that the pt received diabetes medication from [facility] during her last visit. Pt's daughter was upset and stated, "My mother does not have diabetes and that medication should not have been prescribed. I hope that they do not give it to her during her stay now".
[2017-04-30] MEDS: BLOOD SUGAR DIAGNOSTIC 1 EACH STRIP VI SCH ×2 (17:30→20:43)
[2017-04-30] MEDS: QUETIAPINE FUMARATE 25 MG TABLET PO SCH (17:52)
[2017-04-30] MEDS: METFORMIN HCL 850 MG TABLET PO SCH (17:52)
[2017-04-30] MEDS: INSULIN REGULAR, HUMAN 300 UNIT/3 ML VIAL SQ PRN (17:54)
[2017-04-30] MEDS: RIVAROXABAN 15 MG TABLET PO SCH (17:55)
[2017-04-30 20:00] VITALS: BP 125/72
[2017-04-30] MEDS: ATORVASTATIN 40 MG TABLET PO SCH (20:43)
--- NOTE | 2017-04-30 21:00 | NUR ---
PT RECEIVED IN THE HALLWAY SITTING AND INTERMITTENTLY CRYING, UNABLE TO STATE WHY, ASSISTED TO THE REST ROOM AND PUT BACK TO BED, MED COMPLIANT, BLOOD SUGAR STABLE, NO COVERAGE REQUIRED, CONTINUE TO MONITOR CLOSELY.
[2017-05-01] MEDS: ZOLPIDEM 5 MG TABLET PO PRN (00:41)
[2017-05-01] MEDS: ACETAMINOPHEN 325 MG TABLET PO PRN ×2 (00:42→20:21)
[2017-05-01] MEDS: BLOOD SUGAR DIAGNOSTIC 1 EACH STRIP VI SCH ×4 (06:44→20:12)
[2017-05-01 07:30] VITALS: BP 127/77
[2017-05-01 08:18] LABS: BASOPHILS # (AUTO) 0.1 K/uL (0.0-8.0); BASOPHILS % (AUTO) 0.7 % (0.0-2.0); EOSINOPHILS # (AUTO) 0.1 K/uL (0.0-0.7); EOSINOPHILS % (AUTO) 1.5 % (0.0-7.0); HEMATOCRIT 33.5 % (31.2-41.9); HEMOGLOBIN 11.2 g/dL (10.9-14.3); LYMPHOCYTES # (AUTO) 2.9 K/uL (20.0-40.0); LYMPHOCYTES % (AUTO) 36.7 % (20.5-51.5); MEAN CORPUSCULAR HEMOGLOBIN 30.6 uug (24.7-32.8); MEAN CORPUSCULAR HGB CONC 33 g/dL (32.3-35.6); MEAN CORPUSCULAR VOLUME 91.7 fL (75.5-95.3); MONOCYTES # (AUTO) 0.8 K/uL (2.0-10.0); MONOCYTES % (AUTO) 10.8 % (0.0-11.0); NEUTROPHILS # (AUTO) 3.9 K/uL (1.8-8.9); NEUTROPHILS % (AUTO) 50.3 % (38.5-71.5); PLATELET COUNT (AUTO) 258 K/uL (179-408); RED BLOOD CELL COUNT(AUTO) 3.65 MIL/uL (3.63-4.92); WHITE BLOOD COUNT (AUTO) 7.8 K/uL (3.8-11.8)
[2017-05-01] MEDS ORDERED: FENOFIBRATE NANOCRYSTALLIZED 145 MG TABLET PO SCH (09:00)
[2017-05-01 09:13] LABS: *BILIRUBIN,URIN NEGATIVE (NEGATIVE); *BLOOD, URINE 2+ (NEGATIVE); *CLARITY,URINE CLOUDY (CLEAR); *COLOR,URINE YELLOW (YELLOW); *KETONES,URINE NEGATIVE (NEGATIVE); *PROTEIN,URINE 2+ (NEGATIVE); *UROBILINOGEN,URINE 0.2 E.U./dl (NORMAL); LEUKOCYTE ESTERASE ,URINE 3+ (NEGATIVE); NITRITE, URINE POSITIVE (NEGATIVE); UGLUCOSE NEGATIVE (NEGATIVE)
[2017-05-01] MEDS: LIOTHYRONINE SODIUM 5 MCG TABLET PO SCH (09:25)
[2017-05-01] MEDS: LINAGLIPTIN 5 MG TABLET PO SCH (09:25)
[2017-05-01] MEDS: LIDOCAINE 5% PATCH TD SCH (09:25)
[2017-05-01] MEDS: DOCUSATE SODIUM 100 MG CAPSULE PO SCH (09:26)
[2017-05-01] MEDS: DIGOXIN 125 MCG TABLET PO SCH (09:26)
[2017-05-01] MEDS: LORAZEPAM 0.5 MG TABLET PO PRN ×2 (09:26→21:28)
[2017-05-01] MEDS: DIVALPROEX SPRINKLE 125 MG CAP.SPRINK PO SCH ×3 (09:26→17:41)
[2017-05-01] MEDS: OMEGA-3 FATTY ACIDS/FISH OIL CAPSULE PO SCH (09:26)
[2017-05-01] MEDS: QUETIAPINE FUMARATE 25 MG TABLET PO SCH ×2 (09:27→17:41)
[2017-05-01] MEDS: HYDROCHLOROTHIAZIDE 25 MG TABLET PO SCH (09:27)
[2017-05-01] MEDS: METFORMIN HCL 850 MG TABLET PO SCH ×2 (09:28→17:41)
[2017-05-01] MEDS: LEVOTHYROXINE SODIUM 88 MCG TABLET PO SCH (09:28)
[2017-05-01 09:30] LABS: WBC,URINE TNTC /HPF (0-3)
[2017-05-01 09:31] LABS: BACTERIA,URINE MANY /HPF (NONE SEEN); SQUAMOUS EPITHELIAL CELL,UR FEW /HPF (NONE SEEN)
[2017-05-01 10:03] LABS: ALANINE AMINOTRANSFERASE 32 U/L (14-59); ALKALINE PHOSPHATASE 31 U/L (50-136); ASPARTATE AMINOTRANSFERASE 31 U/L (15-37); BILIRUBIN,TOTAL 0.4 mg/dL (0.2-1.0); CARBON DIOXIDE 25 mmol/L (21-32); CHLORIDE 103 mmol/L (98-107); CREATININE 1.3 mg/dL (0.6-1.3); GLUCOSE 129 mg/dL (74-106); MAGNESIUM 2.1 mg/dL (1.8-2.4); POTASSIUM 3.6 mmol/L (3.5-5.1); TOTAL PROTEIN, SERUM 7.1 g/dL (6.4-8.2); UREA NITROGEN, BLOOD 22 mg/dL (7-18)
[2017-05-01 10:57] LABS: *AMPHETAMINE, URINE NEGATIVE (NEGATIVE); *BARBITURATE, URINE NEGATIVE (NEGATIVE); *CANNABINOID, URINE NEGATIVE (NEGATIVE); *COCCAINE, URINE NEGATIVE (NEGATIVE); *OPIATE, URINE NEGATIVE (NEGATIVE); *PHENCYCLIDINE SCREEN,URINE NEGATIVE (NEGATIVE)
[2017-05-01 15:24] VITALS: BP 141/59
[2017-05-01] MEDS: RIVAROXABAN 15 MG TABLET PO SCH (18:25)
--- NOTE | 2017-05-01 20:00 | NUR ---
RECEIVED LABS: URINALYSIS RESULTS POSITIVE FOR NITRATE; 3+H LEUKOCYTES ESTERASES; AND MANU URINE BACTERIA. DR KENDELL KHALIL WAS NOTIFY AND NEW ORDER OBTAINED TO ADMINISTER BACTRIM DS PO BID X 7 DAYS FOR UTI. AWAITING RESULTS OF URINE CULTURE AND SENSITIVITY. PT IS AFEBRILE IN NO ACUTE DISTRESS.
[2017-05-01] MEDS: SULFAMETH/TRIMETH 800/160 MG TABLET PO SCH (20:21)
[2017-05-01] MEDS: ATORVASTATIN 40 MG TABLET PO SCH (20:21)
[2017-05-01] MEDS ORDERED: SULFAMETH/TRIMETH 800/160 MG TABLET ONE (20:27)
[2017-05-01] MEDS ORDERED: INSULIN REGULAR, HUMAN 300 UNIT/3 ML VIAL ONE (20:46)
[2017-05-01 20:50] VITALS: BP 137/62
[2017-05-01] MEDS: INSULIN REGULAR, HUMAN 300 UNIT/3 ML VIAL SQ PRN (21:28)
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
[2017-05-02] MEDS: BLOOD SUGAR DIAGNOSTIC 1 EACH STRIP VI SCH ×4 (06:32→20:36)
[2017-05-02] MEDS: LEVOTHYROXINE SODIUM 88 MCG TABLET PO SCH (06:32)
[2017-05-02 07:30] VITALS: BP 134/78
[2017-05-02] MEDS: LORAZEPAM 0.5 MG TABLET PO PRN ×3 (08:03→19:35)
[2017-05-02] MEDS: ACETAMINOPHEN 325 MG TABLET PO PRN (08:03)
[2017-05-02] MEDS: QUETIAPINE FUMARATE 25 MG TABLET PO SCH ×2 (08:18→17:21)
[2017-05-02] MEDS: METFORMIN HCL 850 MG TABLET PO SCH ×2 (08:18→17:21)
[2017-05-02] MEDS: LIDOCAINE 5% PATCH TD SCH (08:18)
[2017-05-02] MEDS: LINAGLIPTIN 5 MG TABLET PO SCH (08:19)
[2017-05-02] MEDS: OMEGA-3 FATTY ACIDS/FISH OIL CAPSULE PO SCH (08:19)
[2017-05-02] MEDS: DOCUSATE SODIUM 100 MG CAPSULE PO SCH (08:19)
[2017-05-02] MEDS: DIVALPROEX SPRINKLE 125 MG CAP.SPRINK PO SCH ×3 (08:19→17:21)
[2017-05-02] MEDS: DIGOXIN 125 MCG TABLET PO SCH (08:19)
[2017-05-02] MEDS: LIOTHYRONINE SODIUM 5 MCG TABLET PO SCH (08:19)
[2017-05-02] MEDS: HYDROCHLOROTHIAZIDE 25 MG TABLET PO SCH (08:20)
[2017-05-02] MEDS: SULFAMETH/TRIMETH 800/160 MG TABLET PO SCH ×2 (08:22→20:36)
[2017-05-02 15:26] VITALS: BP 102/53
[2017-05-02] MEDS: INSULIN REGULAR, HUMAN 300 UNIT/3 ML VIAL SQ PRN (17:21)
[2017-05-02] MEDS: RIVAROXABAN 15 MG TABLET PO SCH (17:22)
[2017-05-02 20:15] VITALS: BP 145/83
[2017-05-02] MEDS: ATORVASTATIN 40 MG TABLET PO SCH (20:36)
--- NOTE | 2017-05-02 21:30 | NUR ---
RECEIVED PATIENT IN THE MAIN HALLWAY BY THE NURSING STATION. SHE WAS NOTED CRYING. AND UNABLE TO BE REDIRECTED. WHEN ASKED WHY SHE WAS CRYING, SHE STATED THAT SHE IS FEELING "LONELY", THAT NOBODY WANTS TO STAY WITH HER, AND SHE IS UNABLE TO STOP CRYING. ATIVAN 0.5MG PO PRN FOR ANXIETY WAS GIVEN AT APPROX 1945. PATIENT DENIES HEARING VOICES, DENIES SI. NO AGGRESSIVE BX NOTED OR REPORTED AT THIS TIME. PT CONTINUE ON BACTRIM DS FOR UTI. PATIENT IS AFEBRILE DENIES PAIN OR DISCOMFORT AT THIS TIME. PATIENT IS COMPLAINT WITH MEDICATION REGIMENT. SAFETY WAS EMPHASIS. WILL CONTINUE TO MONITOR.
[2017-05-02] MEDS: ZOLPIDEM 5 MG TABLET PO PRN (22:06)
--- NOTE | 2017-05-02 22:30 | NUR ---
PATIENT CONTINUE WITH CRYING EPISODE, UNABLE TO STAY ASLEEP. AMBIEN 5MG PO PRN WAS GIVEN AT APPROX 2215. WILL CONTINUE TO MONITOR.
--- NOTE | 2017-05-02 23:30 | NUR ---
PATIENT NOTED SLEEPING COMFORTABLY. AMBIEN 5MG PO PRN WAS EFFECTIVE. WILL CONTINUE TO MONITOR.
[2017-05-03] MEDS ORDERED: LORAZEPAM 1 MG TABLET PO PRN (04:45)
--- NOTE | 2017-05-03 04:45 | NUR ---
PT CONTINUE WITH CRYING EPISODES. MULTIPLE REDIRECTION GIVEN; HOWEVER. INEFFECTIVE. PER COVERING PSYCH DOCTOR DR ZURITA, GIVE ATIVAN 1MG PO PRN ONE TIME ONLY FOR ANXIETY/AGITATION. ATIVAN WAS GIVEN AT 0444. WILL CONTINUE TO MONITOR.
[2017-05-03] MEDS: LEVOTHYROXINE SODIUM 88 MCG TABLET PO SCH (06:11)
[2017-05-03] MEDS: BLOOD SUGAR DIAGNOSTIC 1 EACH STRIP VI SCH (06:31)
--- NOTE | 2017-05-03 06:32 | NUR ---
PT SLEPT FOR APPROX 6.0HRS THROUGH THE NIGHT. SHE WAS COMPLIANT WITH AM MEDICATION.
--- NOTE | 2017-05-03 06:42 | NUR ---
PATIENT NOTED WITH SPORADICS OUTBURST OF CRYING EPISODES. ATIVAN 1MG PO PRN ONE TIME ONLY WAS MILDLY EFFECTIVE.
[2017-05-03 07:30] VITALS: BP 134/72
[2017-05-03] MEDS: DOCUSATE SODIUM 100 MG CAPSULE PO SCH (08:34)
[2017-05-03] MEDS: METFORMIN HCL 850 MG TABLET PO SCH (08:34)
[2017-05-03] MEDS: QUETIAPINE FUMARATE 25 MG TABLET PO SCH (08:34)
[2017-05-03] MEDS: OMEGA-3 FATTY ACIDS/FISH OIL CAPSULE PO SCH (08:34)
[2017-05-03] MEDS: DIGOXIN 125 MCG TABLET PO SCH (08:34)
[2017-05-03] MEDS: LIOTHYRONINE SODIUM 5 MCG TABLET PO SCH (08:35)
[2017-05-03] MEDS: SULFAMETH/TRIMETH 800/160 MG TABLET PO SCH ×2 (08:35→20:17)
[2017-05-03] MEDS: LIDOCAINE 5% PATCH TD SCH (08:35)
[2017-05-03] MEDS: HYDROCHLOROTHIAZIDE 25 MG TABLET PO SCH (08:35)
[2017-05-03] MEDS: DIVALPROEX SPRINKLE 125 MG CAP.SPRINK PO SCH ×3 (08:35→17:45)
[2017-05-03] MEDS: LINAGLIPTIN 5 MG TABLET PO SCH (08:35)
[2017-05-03] MEDS ORDERED: QUETIAPINE FUMARATE 25 MG TABLET PO SCH (09:00)
[2017-05-03] MEDS: QUETIAPINE FUMARATE 100 MG TABLET PO SCH ×3 (09:20→17:45)
[2017-05-03] MEDS: LORAZEPAM 0.5 MG TABLET PO PRN ×2 (12:38→20:17)
[2017-05-03 17:07] VITALS: BP 102/60
[2017-05-03] MEDS: RIVAROXABAN 15 MG TABLET PO SCH (17:46)
[2017-05-03] MEDS: ATORVASTATIN 40 MG TABLET PO SCH (20:17)
[2017-05-03 21:09] VITALS: BP 125/65
--- NOTE | 2017-05-03 21:30 | NUR ---
RECEIVED PATIENT IN THE MAIN HALLWAY SITTING IN HER CAITLYN CHAIR. SHE IS A/O X 2. ABLE TO AMBULATE WITH ASSISTANCE AND A WALKER. SHE IS HAVING LESS CRYING OUTBURST EPISODES AT THIS TIME. ATIVAN 0.5MG WAS GIVEN FOR AGITATION AT APPROX 2030. SAFETY WAS EMPHASIS. WILL CONTINUE TO MONITOR.
[2017-05-04] MEDS: LEVOTHYROXINE SODIUM 88 MCG TABLET PO SCH (06:27)
[2017-05-04 07:30] VITALS: BP 120/87
[2017-05-04] MEDS: ACETAMINOPHEN 325 MG TABLET PO PRN ×2 (08:11→20:06)
[2017-05-04] MEDS: LORAZEPAM 0.5 MG TABLET PO PRN ×2 (08:11→20:01)
[2017-05-04] MEDS: DIVALPROEX SPRINKLE 125 MG CAP.SPRINK PO SCH ×3 (09:17→17:30)
[2017-05-04] MEDS: DIGOXIN 125 MCG TABLET PO SCH (09:17)
[2017-05-04] MEDS: QUETIAPINE FUMARATE 100 MG TABLET PO SCH ×3 (09:17→17:30)
[2017-05-04] MEDS: LIOTHYRONINE SODIUM 5 MCG TABLET PO SCH (09:17)
[2017-05-04] MEDS: DOCUSATE SODIUM 100 MG CAPSULE PO SCH (09:17)
[2017-05-04] MEDS: OMEGA-3 FATTY ACIDS/FISH OIL CAPSULE PO SCH (09:17)
[2017-05-04] MEDS: SULFAMETH/TRIMETH 800/160 MG TABLET PO SCH ×2 (09:17→20:01)
[2017-05-04] MEDS: HYDROCHLOROTHIAZIDE 25 MG TABLET PO SCH (09:17)
[2017-05-04] MEDS: LIDOCAINE 5% PATCH TD SCH (09:18)
[2017-05-04] MEDS: ESCITALOPRAM OXALATE 10 MG TABLET PO SCH (10:20)
[2017-05-04 16:42] VITALS: BP 121/69
[2017-05-04] MEDS: RIVAROXABAN 15 MG TABLET PO SCH (17:31)
[2017-05-04] MEDS: ATORVASTATIN 40 MG TABLET PO SCH (20:01)
[2017-05-04 20:11] VITALS: BP 116/68
--- NOTE | 2017-05-04 20:45 | NUR ---
3+ PITTING EDEMA NOTED TO (B) ANKLES AND FEET. WILL CALL TO NOTIFY. Addendum: 05/05/17 at 0449 by SHADI ELDRIDGE RN LEGS ELEVATED WHILE IN BED.
[2017-05-05] MEDS: LEVOTHYROXINE SODIUM 88 MCG TABLET PO SCH (06:33)
--- NOTE | 2017-05-05 06:49 | NUR ---
MESSAGE LEFT FOR DR BRIGITTE KHALIL REGARDING Pt's ANKLE EDEMA, AWAITING CALL BACK.
[2017-05-05 08:00] VITALS: BP 140/75
[2017-05-05] MEDS: ACETAMINOPHEN 325 MG TABLET PO PRN ×2 (08:00→20:25)
[2017-05-05] MEDS: LORAZEPAM 0.5 MG TABLET PO PRN ×2 (08:00→21:19)
[2017-05-05] MEDS: HYDROCHLOROTHIAZIDE 25 MG TABLET PO SCH (08:42)
[2017-05-05] MEDS: SULFAMETH/TRIMETH 800/160 MG TABLET PO SCH ×2 (08:42→20:26)
[2017-05-05] MEDS: DIVALPROEX SPRINKLE 125 MG CAP.SPRINK PO SCH ×5 (08:42→20:17)
[2017-05-05] MEDS: LIOTHYRONINE SODIUM 5 MCG TABLET PO SCH (08:42)
[2017-05-05] MEDS: OMEGA-3 FATTY ACIDS/FISH OIL CAPSULE PO SCH (08:42)
[2017-05-05] MEDS: ESCITALOPRAM OXALATE 10 MG TABLET PO SCH (08:43)
[2017-05-05] MEDS: DOCUSATE SODIUM 100 MG CAPSULE PO SCH (08:43)
[2017-05-05] MEDS: LIDOCAINE 5% PATCH TD SCH (08:43)
[2017-05-05] MEDS: QUETIAPINE FUMARATE 100 MG TABLET PO SCH ×3 (08:43→16:46)
[2017-05-05] MEDS: DIGOXIN 125 MCG TABLET PO SCH (08:43)
--- NOTE | 2017-05-05 09:15 | NUR ---
GPS: Nursing Notes: Depakote: Patient already got his morning dose of Depakote 250mg this am, next dose at 13:00 hrs. Continue with treatment plan.
[2017-05-05 16:00] VITALS: BP 107/50
[2017-05-05 16:12] LABS: BASOPHILS # (AUTO) 0.1 K/uL (0.0-8.0); BASOPHILS % (AUTO) 0.7 % (0.0-2.0); EOSINOPHILS # (AUTO) 0.1 K/uL (0.0-0.7); EOSINOPHILS % (AUTO) 1.2 % (0.0-7.0); HEMATOCRIT 33.3 % (31.2-41.9); HEMOGLOBIN 11.3 g/dL (10.9-14.3); LYMPHOCYTES # (AUTO) 3.3 K/uL (20.0-40.0); LYMPHOCYTES % (AUTO) 41.7 % (20.5-51.5); MEAN CORPUSCULAR HEMOGLOBIN 30.9 uug (24.7-32.8); MEAN CORPUSCULAR HGB CONC 34 g/dL (32.3-35.6); MEAN CORPUSCULAR VOLUME 91.4 fL (75.5-95.3); MONOCYTES # (AUTO) 0.9 K/uL (2.0-10.0); MONOCYTES % (AUTO) 10.8 % (0.0-11.0); NEUTROPHILS # (AUTO) 3.6 K/uL (1.8-8.9); NEUTROPHILS % (AUTO) 45.6 % (38.5-71.5); PLATELET COUNT (AUTO) 252 K/uL (179-408); RED BLOOD CELL COUNT(AUTO) 3.64 MIL/uL (3.63-4.92); WHITE BLOOD COUNT (AUTO) 7.9 K/uL (3.8-11.8)
[2017-05-05 16:24] LABS: ALANINE AMINOTRANSFERASE 40 U/L (14-59); ALKALINE PHOSPHATASE 36 U/L (50-136); ASPARTATE AMINOTRANSFERASE 32 U/L (15-37); BILIRUBIN,TOTAL 0.3 mg/dL (0.2-1.0); CARBON DIOXIDE 27 mmol/L (21-32); CHLORIDE 97 mmol/L (98-107); CREATININE 1.7 mg/dL (0.6-1.3); GLUCOSE 156 mg/dL (74-106); MAGNESIUM 2.1 mg/dL (1.8-2.4); PHOSPHOROUS 3.4 mg/dL (2.5-4.9); POTASSIUM 3.8 mmol/L (3.5-5.1); TOTAL PROTEIN, SERUM 7.2 g/dL (6.4-8.2); UREA NITROGEN, BLOOD 19 mg/dL (7-18)
[2017-05-05 16:36] LABS: THYROID STIMULATING HORMONE 1.733 mIU/mL (0.358-3.740)
[2017-05-05] MEDS: RIVAROXABAN 15 MG TABLET PO SCH (17:12)
[2017-05-05] MEDS: ATORVASTATIN 40 MG TABLET PO SCH (20:17)
[2017-05-05 20:29] VITALS: BP 114/75
[2017-05-06] MEDS: LORAZEPAM 0.5 MG TABLET PO PRN (03:06)
--- NOTE | 2017-05-06 03:30 | NUR ---
Pt AWOKE UPSET, ANXIOUS, AND CRYING AT 0300. ATIVAN 0.5mg ADMINISTERED.
[2017-05-06] MEDS: LEVOTHYROXINE SODIUM 88 MCG TABLET PO SCH (06:14)
[2017-05-06 07:30] VITALS: BP 149/68
[2017-05-06] MEDS: DIVALPROEX SPRINKLE 125 MG CAP.SPRINK PO SCH ×4 (08:50→20:59)
[2017-05-06] MEDS: QUETIAPINE FUMARATE 100 MG TABLET PO SCH ×4 (08:50→20:57)
[2017-05-06] MEDS: SULFAMETH/TRIMETH 800/160 MG TABLET PO SCH (08:50)
[2017-05-06] MEDS: OMEGA-3 FATTY ACIDS/FISH OIL CAPSULE PO SCH (08:50)
[2017-05-06] MEDS: DOCUSATE SODIUM 100 MG CAPSULE PO SCH (08:51)
[2017-05-06] MEDS: ESCITALOPRAM OXALATE 10 MG TABLET PO SCH (08:51)
[2017-05-06] MEDS: DIGOXIN 125 MCG TABLET PO SCH (08:51)
[2017-05-06] MEDS: HYDROCHLOROTHIAZIDE 25 MG TABLET PO SCH (08:51)
[2017-05-06] MEDS: LIOTHYRONINE SODIUM 5 MCG TABLET PO SCH (08:52)
[2017-05-06] MEDS: LIDOCAINE 5% PATCH TD SCH (08:53)
[2017-05-06 15:00] VITALS: BP 118/60
[2017-05-06] MEDS: ACETAMINOPHEN 325 MG TABLET PO PRN (15:09)
--- NOTE | 2017-05-06 15:10 | NUR ---
Gps/Director Of Market Intelligence- results of the EKG was sent to Gracie Louie NP.result noted.
[2017-05-06] MEDS: RIVAROXABAN 15 MG TABLET PO SCH (17:12)
--- NOTE | 2017-05-06 17:23 | NUR ---
Gps/Dean Of Instruction- Confused, kept going to the other bed to sleep, also noted pt. kept removing her hosp. gown, discouraged from doing so. Less crying spells noted.
[2017-05-06 20:00] VITALS: BP 104/55
[2017-05-06] MEDS: ATORVASTATIN 40 MG TABLET PO SCH (20:57)
[2017-05-06] MEDS: CEPHALEXIN MONOHYDRATE 250 MG CAPSULE PO SCH (21:00)
--- NOTE | 2017-05-06 21:58 | NUR ---
RECEIVED PATIENT IN HER BED. SHE WAS NOTED A/O X 2. SHE IS ABLE TO MAKE HER NEEDS KNOW, CONTINENT OF BOWEL AND BLADDER AND ABLE TO AMBULATE WITH A WALKER AND ASSISTED BY ONE PERSON. SHE WAS NOTED IRRITABLE; HOWEVER SHE WAS ABLE TO COMPLY WITH [facility] MEDICATION REGIMENT. SAFETY WAS EMPHASIS.
[2017-05-07] MEDS: LEVOTHYROXINE SODIUM 88 MCG TABLET PO SCH (06:39)
[2017-05-07] MEDS: CEPHALEXIN MONOHYDRATE 250 MG CAPSULE PO SCH ×3 (06:40→22:24)
[2017-05-07 07:30] VITALS: BP 138/76
[2017-05-07] MEDS: ESCITALOPRAM OXALATE 10 MG TABLET PO SCH (08:26)
[2017-05-07] MEDS: DIVALPROEX SPRINKLE 125 MG CAP.SPRINK PO SCH ×4 (08:26→20:44)
[2017-05-07] MEDS: DOCUSATE SODIUM 100 MG CAPSULE PO SCH (08:26)
[2017-05-07] MEDS: OMEGA-3 FATTY ACIDS/FISH OIL CAPSULE PO SCH (08:26)
[2017-05-07] MEDS: QUETIAPINE FUMARATE 100 MG TABLET PO SCH ×4 (08:26→20:44)
[2017-05-07] MEDS: DIGOXIN 125 MCG TABLET PO SCH (08:27)
[2017-05-07] MEDS: HYDROCHLOROTHIAZIDE 25 MG TABLET PO SCH (08:27)
[2017-05-07] MEDS: LIDOCAINE 5% PATCH TD SCH (08:28)
[2017-05-07] MEDS: LIOTHYRONINE SODIUM 5 MCG TABLET PO SCH (08:48)
[2017-05-07 08:58] LABS: BASOPHILS % (AUTO) 0.7 % (0.0-2.0); EOSINOPHILS # (AUTO) 0.1 K/uL (0.0-0.7); EOSINOPHILS % (AUTO) 1.6 % (0.0-7.0); HEMATOCRIT 34.4 % (31.2-41.9); HEMOGLOBIN 11.8 g/dL (10.9-14.3); LYMPHOCYTES # (AUTO) 2.5 K/uL (20.0-40.0); LYMPHOCYTES % (AUTO) 38.1 % (20.5-51.5); MEAN CORPUSCULAR HEMOGLOBIN 31.4 uug (24.7-32.8); MEAN CORPUSCULAR HGB CONC 34 g/dL (32.3-35.6); MEAN CORPUSCULAR VOLUME 91.7 fL (75.5-95.3); MONOCYTES # (AUTO) 0.7 K/uL (2.0-10.0); NEUTROPHILS # (AUTO) 3.1 K/uL (1.8-8.9); NEUTROPHILS % (AUTO) 48.6 % (38.5-71.5); PLATELET COUNT (AUTO) 259 K/uL (179-408); RED BLOOD CELL COUNT(AUTO) 3.76 MIL/uL (3.63-4.92); WHITE BLOOD COUNT (AUTO) 6.4 K/uL (3.8-11.8)
[2017-05-07 09:08] LABS: ALANINE AMINOTRANSFERASE 41 U/L (14-59); ALKALINE PHOSPHATASE 36 U/L (50-136); ASPARTATE AMINOTRANSFERASE 33 U/L (15-37); BILIRUBIN,TOTAL 0.3 mg/dL (0.2-1.0); CARBON DIOXIDE 29 mmol/L (21-32); CHLORIDE 99 mmol/L (98-107); CREATININE 1.4 mg/dL (0.6-1.3); DIGOXIN 0.5 ng/mL (0.9-2.0); GLUCOSE 127 mg/dL (74-106); MAGNESIUM 2.2 mg/dL (1.8-2.4); PHOSPHOROUS 3.7 mg/dL (2.5-4.9); POTASSIUM 3.6 mmol/L (3.5-5.1); TOTAL PROTEIN, SERUM 7.4 g/dL (6.4-8.2); UREA NITROGEN, BLOOD 16 mg/dL (7-18)
[2017-05-07 16:00] VITALS: BP 103/53
[2017-05-07] MEDS: RIVAROXABAN 15 MG TABLET PO SCH (17:14)
[2017-05-07] MEDS: ATORVASTATIN 40 MG TABLET PO SCH (20:44)
[2017-05-07 20:52] VITALS: BP 127/71
--- NOTE | 2017-05-07 21:00 | NUR ---
GPS: PATIENT C/O GEN: PAIN 8/10 PAIN LEVEL. TYLENOL PO OFFERED FOR PAIN .PATIENT STATED I DON'T NEED PAIN MEDICATION NOW. I WANT GO TO SLEEP NOW. ASSISTED PATIENT IN BED.
[2017-05-07] MEDS: ACETAMINOPHEN 325 MG TABLET PO PRN (23:29)
--- NOTE | 2017-05-07 23:30 | NUR ---
GPS: PATIENT C/O LEFT ARM PAIN. TYLENOL 650 MG PO GIVEN.
[2017-05-07] MEDS: LORAZEPAM 0.5 MG TABLET PO PRN (23:47)
--- NOTE | 2017-05-07 23:47 | NUR ---
GPS: PATIENT IS CRYING, STATED I AM VERY SAD.ATIVAN 0.5 MG PO GIVEN FOR AGITATION.
[2017-05-08] MEDS: CEPHALEXIN MONOHYDRATE 250 MG CAPSULE PO SCH ×2 (05:32→13:00)
[2017-05-08] MEDS: LEVOTHYROXINE SODIUM 88 MCG TABLET PO SCH (06:02)
--- NOTE | 2017-05-08 06:26 | NUR ---
GPS: REMAIN CALM AND COOPERATIVE WITH MEDICATIONS AND CARE. SHOWERED THIS MORNING. SLEPT 5 HRS THROUGH THE NIGHT.
[2017-05-08 07:30] VITALS: BP 114/68
[2017-05-08 08:05] LABS: BASOPHILS # (AUTO) 0.1 K/uL (0.0-8.0); BASOPHILS % (AUTO) 0.9 % (0.0-2.0); EOSINOPHILS # (AUTO) 0.1 K/uL (0.0-0.7); EOSINOPHILS % (AUTO) 1.8 % (0.0-7.0); HEMATOCRIT 35.7 % (31.2-41.9); HEMOGLOBIN 12.2 g/dL (10.9-14.3); LYMPHOCYTES # (AUTO) 2.8 K/uL (20.0-40.0); LYMPHOCYTES % (AUTO) 39.8 % (20.5-51.5); MEAN CORPUSCULAR HEMOGLOBIN 31.3 uug (24.7-32.8); MEAN CORPUSCULAR HGB CONC 34 g/dL (32.3-35.6); MEAN CORPUSCULAR VOLUME 91.7 fL (75.5-95.3); MONOCYTES # (AUTO) 0.8 K/uL (2.0-10.0); MONOCYTES % (AUTO) 11.1 % (0.0-11.0); NEUTROPHILS # (AUTO) 3.3 K/uL (1.8-8.9); NEUTROPHILS % (AUTO) 46.4 % (38.5-71.5); PLATELET COUNT (AUTO) 269 K/uL (179-408); RED BLOOD CELL COUNT(AUTO) 3.89 MIL/uL (3.63-4.92); WHITE BLOOD COUNT (AUTO) 7.1 K/uL (3.8-11.8)
[2017-05-08 08:38] LABS: ALANINE AMINOTRANSFERASE 46 U/L (14-59); ALKALINE PHOSPHATASE 39 U/L (50-136); ASPARTATE AMINOTRANSFERASE 36 U/L (15-37); BILIRUBIN,TOTAL 0.4 mg/dL (0.2-1.0); CARBON DIOXIDE 28 mmol/L (21-32); CHLORIDE 96 mmol/L (98-107); CREATINE KINASE, TOTAL 112 U/L (26-192); CREATININE 1.5 mg/dL (0.6-1.3); GLUCOSE 135 mg/dL (74-106); MAGNESIUM 2.2 mg/dL (1.8-2.4); PHOSPHOROUS 3.7 mg/dL (2.5-4.9); POTASSIUM 3.9 mmol/L (3.5-5.1); TOTAL PROTEIN, SERUM 7.8 g/dL (6.4-8.2); UREA NITROGEN, BLOOD 22 mg/dL (7-18)
[2017-05-08] MEDS: LIOTHYRONINE SODIUM 5 MCG TABLET PO SCH (09:06)
[2017-05-08] MEDS: HYDROCHLOROTHIAZIDE 25 MG TABLET PO SCH (09:06)
[2017-05-08] MEDS: DOCUSATE SODIUM 100 MG CAPSULE PO SCH (09:06)
[2017-05-08] MEDS: ESCITALOPRAM OXALATE 10 MG TABLET PO SCH (09:07)
[2017-05-08] MEDS: QUETIAPINE FUMARATE 100 MG TABLET PO SCH ×4 (09:07→20:45)
[2017-05-08] MEDS: DIGOXIN 125 MCG TABLET PO SCH (09:07)
[2017-05-08] MEDS: OMEGA-3 FATTY ACIDS/FISH OIL CAPSULE PO SCH (09:07)
[2017-05-08] MEDS: DIVALPROEX SPRINKLE 125 MG CAP.SPRINK PO SCH ×4 (09:07→20:45)
[2017-05-08] MEDS: LIDOCAINE 5% PATCH TD SCH (09:08)
[2017-05-08 16:50] VITALS: BP 91/50
[2017-05-08] MEDS: RIVAROXABAN 15 MG TABLET PO SCH (17:24)
[2017-05-08 20:27] VITALS: BP 107/51
[2017-05-08] MEDS: ATORVASTATIN 40 MG TABLET PO SCH (20:45)
[2017-05-09 04:07] LABS: *CREATININE,URINE 36.6 mg/dL (30-125)
[2017-05-09 04:36] LABS: *BILIRUBIN,URIN NEGATIVE (NEGATIVE); *BLOOD, URINE NEGATIVE (NEGATIVE); *CLARITY,URINE CLEAR (CLEAR); *COLOR,URINE YELLOW (YELLOW); *KETONES,URINE NEGATIVE (NEGATIVE); *PROTEIN,URINE NEGATIVE (NEGATIVE); *UROBILINOGEN,URINE 0.2 E.U./dl (NORMAL); LEUKOCYTE ESTERASE ,URINE NEGATIVE (NEGATIVE); NITRITE, URINE NEGATIVE (NEGATIVE); PH,URINE 5.5 (5.0-8.0); UGLUCOSE NEGATIVE (NEGATIVE)
[2017-05-09 04:37] LABS: RBC,URINE 0-3 /HPF (0-3); WBC,URINE 0-3 /HPF (0-3)
[2017-05-09 04:39] LABS: BACTERIA,URINE NONE SEEN /HPF (NONE SEEN); SQUAMOUS EPITHELIAL CELL,UR FEW /HPF (NONE SEEN)
--- NOTE | 2017-05-09 05:08 | NUR ---
URINE COLLECTED AND SENT TO LAB, NEGATIVE FOR UTI. LOW RANDOM URINE SODIUM.
[2017-05-09] MEDS: LEVOTHYROXINE SODIUM 88 MCG TABLET PO SCH (06:27)
[2017-05-09 07:30] VITALS: BP 114/54
[2017-05-09] MEDS: OMEGA-3 FATTY ACIDS/FISH OIL CAPSULE PO SCH (08:25)
[2017-05-09] MEDS: DIVALPROEX SPRINKLE 125 MG CAP.SPRINK PO SCH ×4 (08:25→20:43)
[2017-05-09] MEDS: QUETIAPINE FUMARATE 100 MG TABLET PO SCH ×4 (08:25→20:43)
[2017-05-09] MEDS: ESCITALOPRAM OXALATE 10 MG TABLET PO SCH (08:26)
[2017-05-09] MEDS: DOCUSATE SODIUM 100 MG CAPSULE PO SCH (08:26)
[2017-05-09] MEDS: LIDOCAINE 5% PATCH TD SCH (08:26)
[2017-05-09] MEDS: HYDROCHLOROTHIAZIDE 25 MG TABLET PO SCH (08:26)
[2017-05-09] MEDS: DIGOXIN 125 MCG TABLET PO SCH (08:26)
[2017-05-09] MEDS: LIOTHYRONINE SODIUM 5 MCG TABLET PO SCH (08:28)
[2017-05-09 16:20] VITALS: BP 113/65
[2017-05-09] MEDS: ACETAMINOPHEN 325 MG TABLET PO PRN (16:55)
[2017-05-09] MEDS: LORAZEPAM 0.5 MG TABLET PO PRN (16:55)
[2017-05-09] MEDS: RIVAROXABAN 15 MG TABLET PO SCH (17:02)
[2017-05-09 20:00] VITALS: BP 118/61
[2017-05-09] MEDS: ATORVASTATIN 40 MG TABLET PO SCH (20:43)
--- NOTE | 2017-05-09 21:00 | NUR ---
RECEIVED PT IN HER BED AWAKE. SHE IS A/O X 1 ABLE TO MAKE HER NEEDS KNOW AND ABLE TO AMBULATE WITH A WALKER. SHE IS CONTINENT OF BOWEL AND BLADDER AT THIS TIME. SHE WAS NOTED WITH DEPRESSED MOOD, EASILY IRRITABLE, ANGRY AT TIMES, WITHDRAWN AND NEEDY. SHE DENIES SI AND HI. NO AGGRESSIVE OR COMBATIVE BX NOTED AT THIS TIME. PT IS COMPLAINT WITH HER MEDICATION REGIMENT. SAFETY WAS EMPHASIS. FALL PRECAUTION. WILL CONTINUE TO MONITOR.
[2017-05-10] MEDS: LEVOTHYROXINE SODIUM 88 MCG TABLET PO SCH (06:11)
--- NOTE | 2017-05-10 07:28 | NUR ---
PATIENT SLEPT FOR APPROX 7.30HRS THROUGH THE NIGHT. ONE EPISODE OF OUTBURST CRYING, CONFUSED AND IRRITABLE NOTED DURING THE NIGHT. PT WAS REDIRECTED. NO AGGRESSIVE OR COMBATIVE BX NOTED DURING THE SHIFT
[2017-05-10 07:30] VITALS: BP 103/64
[2017-05-10] MEDS: DOCUSATE SODIUM 100 MG CAPSULE PO SCH (08:13)
[2017-05-10] MEDS: ESCITALOPRAM OXALATE 10 MG TABLET PO SCH (08:13)
[2017-05-10] MEDS: OMEGA-3 FATTY ACIDS/FISH OIL CAPSULE PO SCH (08:13)
[2017-05-10] MEDS: DIVALPROEX SPRINKLE 125 MG CAP.SPRINK PO SCH ×3 (08:13→16:37)
[2017-05-10] MEDS: DIGOXIN 125 MCG TABLET PO SCH (08:14)
[2017-05-10] MEDS: QUETIAPINE FUMARATE 100 MG TABLET PO SCH ×3 (08:14→16:38)
[2017-05-10] MEDS: HYDROCHLOROTHIAZIDE 25 MG TABLET PO SCH (08:16)
[2017-05-10] MEDS: LIOTHYRONINE SODIUM 5 MCG TABLET PO SCH (08:16)
[2017-05-10] MEDS: LIDOCAINE 5% PATCH TD SCH (08:17)
--- NOTE | 2017-05-10 10:44 | NUR ---
Discharge Note: Patient will be discharged to [facility] [address], [place] [address]; via private transportation. Transportation will be provided by [facility]. NADEEM spoke with Enedelia ([phone]) at [facility] to confirm discharge plans. Patient is aware and agreeable to discharge plans. Pts daughter Zakiya ([phone]) is aware and agreeable to discharge plans. NADEEM left a voicemail with details of discharge for Zakiya. Patient will follow up with Dr. Clayton (Respiratory Care Assistant) and Dr. Grigsby (Psychiatrist).
[2017-05-10] MEDS: LORAZEPAM 0.5 MG TABLET PO PRN (11:59)
[2017-05-10] MEDS: ACETAMINOPHEN 325 MG TABLET PO PRN (11:59)
[2017-05-10] MEDS: RIVAROXABAN 15 MG TABLET PO SCH (17:03)
[2017-05-10 17:07] VITALS: BP 118/63
--- NOTE | 2017-05-10 17:46 | NUR ---
GPS: Nursing Notes: Discharge Notes: Patient is awake and responding to her name, disoriented, forgetful, compliant with her medications, cooperative with nursing care, denies any SI/HI, denies any AH/VH, denies any pain or discomfort, denies any SOB, discharge to [facility] at [address], [place] [address] , report given to Michel RN general car yard supervisor. Transportation will be provided by [facility]. [facility] will pick her up at 18:30 hrs. per social work therapist. NADEEM spoke with Enedelia ([phone]) at [facility] to confirm discharge plans. Patient is aware and agreeable to discharge plans. Pts daughter Zakiya ([phone]) is aware and agreeable to discharge plans. NADEEM left a voicemail with details of discharge for Zakiya. Patient will follow up with Dr. Clayton (Under Baster) and Dr. Grigsby (Psychiatrist).
--- NOTE | 2017-05-10 18:30 | NUR ---
GPS: Nursing Notes: Discharge Notes: Picked up by [facility]'s seasonal delivery driver, transfer to private vehicle via wheelchair, transported to facility via private vehicle, took all her belonging with her.
[2017-05-11 08:06] LABS: ALBUMIN 3.7 g/dL (2.9-4.4); ALPHA-1-GLOBULIN 0.3 g/dL (0.0-0.4); ALPHA-2-GLOBULIN 0.8 g/dL (0.4-1.0); BETA GLOBULIN 1.4 g/dL (0.7-1.3); GAMMA GLOBULIN 1.2 g/dL (0.4-1.8); GLOBULIN, TOTAL 3.6 g/dL (2.2-3.9); M-SPIKE Not Observed g/dL (Not Observed)
== END 2017-05-10 18:30 | DRG 885 ==
LOC: ER 16:29 → GPS 19:59
PROVIDERS: ADMIT Psychiatry & Neurology Psychiatry
DX: F31.64 Bipolar disorder, current episode mixed, severe, with psychotic features (principal); N18.9 Chronic kidney disease, unspecified; N17.0 Acute kidney failure with tubular necrosis; E11.65 Type 2 diabetes mellitus with hyperglycemia; G93.40 Encephalopathy, unspecified; N39.0 Urinary tract infection, site not specified; E87.1 Hypo-osmolality and hyponatremia; E11.22 Type 2 diabetes mellitus with diabetic chronic kidney disease; I48.2 Chronic atrial fibrillation; E78.5 Hyperlipidemia, unspecified; E03.9 Hypothyroidism, unspecified; E66.9 Obesity, unspecified; Z68.30 Body mass index [BMI] 30.0-30.9, adult; B96.1 Klebsiella pneumoniae [K. pneumoniae] as the cause of diseases classified elsewhere; Z91.14 Patient's other noncompliance with medication regimen; Z91.19 Patient's noncompliance with other medical treatment and regimen; Z86.73 Personal history of transient ischemic attack (TIA), and cerebral infarction without residual deficits; Z79.899 Other long term (current) drug therapy; Z79.01 Long term (current) use of anticoagulants; I12.9 Hypertensive chronic kidney disease with stage 1 through stage 4 chronic kidney disease, or unspecified chronic kidney disease; Z79.84 Long term (current) use of oral hypoglycemic drugs; F03.90 Unspecified dementia, unspecified severity, without behavioral disturbance, psychotic disturbance, mood disturbance, and anxiety
CPT/HCPCS: 36415; 70450; 80164; 80307; 83735; 83970; 84100; 84155; 84156; 84165; 84300; 84443; 85025; 87077; 87086; 93005; 97116; 97530; A4663; G0480; G0480-TC; J1815